=== PATIENT | male | born 1970 | race African-American/Black ===

== ENCOUNTER 2024-04-26 19:37 | Emergency (ER) | payer BC, SELFPAY ==
[2024-04-26] VITALS (17 sets, daily range): BP systolic 132–165; BP diastolic 76–94; PULSE 61–80; RESP 20; TEMP 36.6; O2SAT 95–100; BMI 32.4
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
--- NOTE | 2024-04-26 20:27 | CRLHL7_ITS ---
For Patients: As a result of the Century Cures Act, medical imaging exams and procedure reports are released immediately into your electronic medical record. You may view this report before your referring provider. If you have questions, please contact your health care provider. INDICATION: Left upper chest pain, left arm pain. TECHNIQUE: Chest 2 view. COMPARISON: None. FINDINGS: No focal consolidation, pleural effusion, or pneumothorax. Normal heart size and pulmonary vascularity. The bones are unremarkable. IMPRESSION: No acute cardiopulmonary findings. Dictated by Mulu dArian MD @ 04/26/2024 9:45:25 PM (Electronically Signed)
[2024-04-26] MEDS: KETOROLAC 15 MG/ML inj IVP (20:53)
[2024-04-26] MEDS: ASPIRIN 81 MG TAB.CHEW 162 MG PO (20:54)
[2024-04-26 20:58] LABS: Basophils Absolute Auto 0.04 K/uL (0.00-0.30); Basophils Percent Auto 0.4 % (0.0-3.0); Eosinophils Absolute Auto 0.23 K/uL (0.00-0.50); Eosinophils Percent Auto 2.3 % (0.0-7.0); Hematocrit 39.7 % (37.0-53.0); Hemoglobin* 13.8 gm/dL (13.5-17.5); Immature Granulocytes Abs Auto 0.01 K/uL (0.00-0.30); Immature Granulocytes Pct Auto 0.1 %; Lymphocytes Absolute Auto 2.59 K/uL (0.90-2.90); Lymphocytes Percent Auto 25.6 % (20-44); Mean Corpuscular HGB Conc 35 gm/dL (32-36); Mean Corpuscular Hemoglobin 30 pg (26-34); Mean Corpuscular Volume 86 fL (80-100); Monocytes Percent Auto 9.9 % (0.0-11.0); Neutrophils Absolute Auto 6.24 K/uL (1.7-7.0); Neutrophils Percent Auto 61.7 % (42.0-72.0); Platelet Count* 271 K/uL (140-440); RDW Coefficient of Variation % 11.9 % (11.5-15.5); White Blood Count* 10.11 K/uL (4.50-11.00)
[2024-04-26 21:02] LABS: Slide Review Reflex No
[2024-04-26 21:04] LABS: Chloride* 98 mmol/L (96-114); Potassium* 3.9 mmol/L (3.6-5.1); Sodium* 130 mmol/L (135-149)
[2024-04-26 21:07] LABS: Anion Gap 11 mEq/L (7-15); Blood Urea Nitrogen* 22 mg/dL (7-30); Calcium* 9.6 mg/dL (8.4-10.6); Carbon Dioxide* 21 mmol/L (20-32); Creatinine* 1.4 mg/dL (0.5-1.5); Est. Creatinine Clearance* 63.73; Estimated Glomerular Filt Rate 60 ml/min; Glucose* 223 mg/dL (60-115); Troponin, Point-of-Care* 0.01 ng/ml (0.01-0.04)
[2024-04-26 21:20] LABS: Troponin I* < 0.01 ng/mL (0.01-0.04)
[2024-04-26 21:21] LABS: D Dimer Quantitative* 0.22 ug/ml (0.00-0.50)
== END 2024-04-26 22:26 | disposition home or self-care (01) ==
PROVIDERS: Emergency Provider Emergency Medicine
DX: R07.9 Chest pain, unspecified (principal)
CPT/HCPCS: 36415; 71046; 80048; 84484; 85025; 85379; 96374; 99283; 99284; A9270; J1885